=== PATIENT | female | born 1975 | race Caucasian/White ===

== ENCOUNTER 2021-07-25 06:21 | Emergency (ER) | payer SELFPAY ==
[~2021-07-25] VITALS: Ht 167.6 cm; Wt 61.2 kg
[2021-07-25 07:23] LABS: Basophils # (auto) 0.1 10 ^3/uL (0-0.2); Eosinophils # (auto) 0.4 10 ^3/uL (0-0.8); Hemoglobin 13.2 g/dL (12.2-16.2); Lymphocytes # (auto) 1.7 10 ^3/uL (0.4-5.4); Monocytes # (auto) 0.7 10 ^3/uL (0-1.3)
[2021-07-25 07:28] LABS: Basophils % (auto) 1.1 % (0.0-2.0); Eosinophils % (auto) 3.2 % (0.0-7.0); Hematocrit 39.8 % (36.0-46.0); Lymphocytes % (auto) 14.4 % (10.0-50.0); Mean Corpuscular Hemoglobin 30.4 pg (28.0-32.0); Mean Corpuscular Volume 91.9 fL (80.0-100.0); Monocytes % (auto) 5.6 % (0.0-12.0); Neutrophils % (auto) 75.7 % (37.0-80.0); Red Blood Cells 4.34 10^6/uL (4.0-5.20); Red Cell Distribution Width 14.6 % (11.8-14.3); White Blood Cell 11.9 10^3/uL (4.4-10.8)
[2021-07-25 07:53] LABS: Albumin 3.5 g/dL (3.4-5.0); Anion Gap 4 (5-15); Blood Urea Nitrogen 16 mg/dL (7-18); Calcium 8.9 mg/dL (8.5-10.1); Carbon Dioxide 26 mmol/L (21-32); Chloride 109 mmol/L (98-107); Glucose 117 mg/dL (74-106); Potassium 4.3 mmol/L (3.5-5.1); Sodium 139 mmol/L (136-145)
[2021-07-25 07:57] LABS: Alanine Aminotransferase 37 U/L (13-56); Alkaline Phosphatase 97 U/L (45-117); Aspartate Aminotransferase 18 U/L (15-37); BUN/Creatinine Ratio 21.9; Bilirubin, Total < 0.1 mg/dL (0.2-1.0); GFR African American 110 mL/min; GFR Non-African American 91 mL/min
[2021-07-25 08:04] LABS: Urine Bacteria NONE SEEN /hpf (None Seen); Urine Blood 1+ /uL (Negative); Urine WBC 1 /hpf (0 - 5)
[2021-07-25 10:51] VITALS: BP 127/73
== END 2021-07-25 10:52 | disposition home or self-care (01) ==
LOC: ER 06:21
DX: N93.9 Abnormal uterine and vaginal bleeding, unspecified (principal); F17.210 Nicotine dependence, cigarettes, uncomplicated; Z88.6 Allergy status to analgesic agent; Z88.2 Allergy status to sulfonamides
CPT/HCPCS: 36415; 76830; 76856; 80053; 81001; 84702; 85025

== ENCOUNTER 2022-03-10 11:11 | Emergency (ER) | payer MEDICAID ==
[~2022-03-10] VITALS: Ht 160 cm; Wt 64.0 kg
[2022-03-10 12:14] LABS: Urine WBC None Seen /hpf (0 - 5)
[2022-03-10 12:49] LABS: Urine Bacteria NONE SEEN /hpf (None Seen); Urine Blood 2+ /uL (Negative); Urine Specific Gravity 1.013 (1.001-1.035)
[2022-03-10 12:52] LABS: Basophils # (auto) 0.1 10 ^3/uL (0-0.2); Basophils % (auto) 1.1 % (0.0-2.0); Eosinophils # (auto) 0.1 10 ^3/uL (0-0.8); Eosinophils % (auto) 0.9 % (0.0-7.0); Hematocrit 42.3 % (36.0-46.0); Hemoglobin 14.2 g/dL (12.2-16.2); Lymphocytes # (auto) 1.8 10 ^3/uL (0.4-5.4); Lymphocytes % (auto) 14.5 % (10.0-50.0); Mean Corpuscular Hemoglobin 31.4 pg (28.0-32.0); Mean Corpuscular Hgb Conc. 33.6 g/dL (32.0-36.0); Mean Corpuscular Volume 93.5 fL (80.0-100.0); Monocytes # (auto) 0.7 10 ^3/uL (0-1.3); Monocytes % (auto) 5.3 % (0.0-12.0); Neutrophils # (auto) 9.9 10 ^3/uL (1.6-8.6); Neutrophils % (auto) 78.2 % (37.0-80.0); Red Blood Cells 4.52 10^6/uL (4.0-5.20); Red Cell Distribution Width 13.1 % (11.8-14.3); White Blood Cell 12.7 10^3/uL (4.4-10.8)
[2022-03-10 13:09] LABS: Albumin 3.6 g/dL (3.4-5.0); Potassium 4.2 mmol/L (3.5-5.1)
[2022-03-10 13:12] LABS: Bilirubin, Total 0.2 mg/dL (0.2-1.0); Total Protein 6.4 g/dL (6.4-8.2)
[2022-03-10 13:12] LABS: Alcohol, Urine < 3.0 mg/dL (0-10); Amphetamine Screen, Urine NEGATIVE (NEGATIVE); Barbiturate Scree,Urine NEGATIVE (NEGATIVE); Benzodiazephine Screen, Urine NEGATIVE (NEGATIVE); Cannabinoid Screen, Urine POSITIVE (NEGATIVE); Cocaine Screen, Urine NEGATIVE (NEGATIVE)
[2022-03-10 13:18] LABS: Opiate Scree,Urine NEGATIVE (NEGATIVE); Phencyclidine Screen, Urine NEGATIVE (NEGATIVE)
[2022-03-10] MEDS ORDERED: TRAM-297 PO (15:35)
[2022-03-10 16:45] VITALS: BP 145/77
== END 2022-03-10 16:47 | disposition home or self-care (01) ==
LOC: ER 11:11
DX: R10.32 Left lower quadrant pain (principal); R10.12 Left upper quadrant pain; F17.210 Nicotine dependence, cigarettes, uncomplicated; Z79.899 Other long term (current) drug therapy; Z88.5 Allergy status to narcotic agent; Z88.2 Allergy status to sulfonamides
CPT/HCPCS: 36415; 74176; 80053; 80307; 81001; 81025; 84702; 85025